=== PATIENT | male | born 1985 | race Caucasian/White ===

== ENCOUNTER 2016-12-30 14:09 | Emergency (ER) | payer SELFPAY ==
--- NOTE | 2016-12-30 14:30 | ED Physician Chart ---
Chief Complaint/HPI - Patient Information Date Seen:: 12/30/16 Time Seen:: 14:15 Chief Complaint:: syncope History of Present Illness:: The patient was sitting on a bench talking to friends at [employer]. He states he felt warm and when he stood up he had a syncopal episode falling against a trash can. Paramedics were summoned and placed the patient in a hard cervical collar. Patient denies neck pain at this time. He has had no prior syncopal episodes. Patient drank 2-3 shots of vodka this morning. Patient agrees to suturing lower lip laceration because it continues to bleed. Allergies:: Allergies Allergy/AdvReac Type Severity Reaction Status Date / Time amoxicillin Allergy Verified 12/30/16 14:19 Vitals:: Vital Signs - 8 hr 12/30/16 14:09 Temp 97.5 F HR 145 RR 18 BP 124/85 O2 Sat % 95 Historian:: Patient, Other (paramedics) Review:: Nurse's Note Reviewed Review of Systems - Review of Systems General/Constitutional: No fever, No chills Skin: No skin lesions Head: No headache Eyes: No loss of vision ENT: Other (small lower lip laceration) Cardio Vascular: No chest pain Pulmonary: No SOB GI: No nausea, No vomiting G/U: No dysuria, No hematuria Musculoskeletal: No bone or joint pain Endocrine: No polyuria, No polydipsia Psychiatric: No prior psych history, No depression Hematopoietic: No bruising Allergic/Immuno: No urticaria Neurological: Syncope Past Medical History - Past Medical History Past Medical History: No significant medical hx Family History: None Social History: Smoker, Alcohol, Other (smokes about 1/2 pack cigarets per day) Surgical History: None Psychiatricy History: None Medication: None Family Medical History - Family Member Mother Other Medical History: denies family medical history Physical Exam - Physical Examination General/Constitutional: Well-developed, well-nourished, Alert Head: Atraumatic Eyes: Lids, conjuctiva normal, PERRL Skin: Nl inspection, No rash, No skin lesions, No ecchymosis, Well hydrated, No lymphadenopathy ENMT: External ears, nose nl, TM canals nl, Nasal exam nl, Oropharynx nl, Tonsils nl Other ENMT comments:: 3 mm lateral left lower lip laceration Neck: No nuchal rigidity Respiratory: Nl effort/Exclusion, Clear to Auscultation, No Wheeze/Rhonchi/Rales Cardio Vascular: RRR, No murmur, gallop, rubs, NL S1 S2 GI: No tenderness/rebounding/guarding : No CVA tenderness Extremities: No tenderness or effusion, Full ROM, normal strength in all extremities, No edema, Normal digits & nails Neuro/Psych: No focal deficits Misc: Normal back Labs/Radiology/EKG Results - EKG Interpretations Rate & Rhythm: sinus tach; rate 121 [place]: normal Intervals: normal Comments:: suggestive of Brugata's syndrome type 2. Assessment - Assessment General Assessment: Patient referred to Dr. Marco Antonio Pena for evaluation for possible Brugada's syndrome. 2 copies of the patient's EKG sent along with the patient to take with him to Dr. Pena's office. Location:: lower lip laceration: Cleansed with normal saline; 1% Xylocaine with epinephrine used for local anesthesia; 5-0 chromic 3 interrupted sutures placed Laceration Type:: Simple Inspection: Bases & margins visual, NO FB ED Septic Shock - . Is Septic Shock (SBP<90, OR Lactate>4 mmol\L) present?: No - <6hrs of presentation: Vital Signs: Vital Signs - 8 hr 12/30/16 14:09 Temp 97.5 F HR 145 RR 18 BP 124/85 O2 Sat % 95 Reassessment (Disposition) - Reassessment Reassessment Condition:: Improved - Diagnosis Diagnosis:: vasovagal syncope; lower lip laceration. - Patient Disposition Discharge/Transfer:: Home Condition at Disposition:: Stable, Improved
[2016-12-30] MEDS ORDERED: EPINEPHRine /Lidocaine 1% 20 mL Vial INJ ONE ×2 (14:36→15:29)
== END 2016-12-30 16:00 | disposition home or self-care (01) ==
LOC: ER 14:09
DX: S01.511A Laceration without foreign body of lip, initial encounter (principal); R55 Syncope and collapse; F17.210 Nicotine dependence, cigarettes, uncomplicated; Z88.1 Allergy status to other antibiotic agents; W19.XXXA Unspecified fall, initial encounter; Y93.89 Activity, other specified; Y92.214 College as the place of occurrence of the external cause; Y99.8 Other external cause status
CPT/HCPCS: 12011; 93005; A4217; X6488; Z7502; Z7610